=== PATIENT | male | born 1970 | race Caucasian/White ===

== ENCOUNTER 2023-10-11 12:17 | Outpatient (CLI) | payer OTHER, SELFPAY | END 2023-10-11 12:18 | disposition home or self-care (01) | LOC: NFLDREF 10-15 11:03 | PROVIDERS: PCP Physician Assistant Medical; Referring Provider Physician Assistant Medical; Visit Provider Physician Assistant Medical | DX: Z00.00 Encounter for general adult medical examination without abnormal findings (principal); Z12.5 Encounter for screening for malignant neoplasm of prostate; R73.03 Prediabetes; I10 Essential (primary) hypertension; K21.9 Gastro-esophageal reflux disease without esophagitis; F10.20 Alcohol dependence, uncomplicated | CPT/HCPCS: G0103 ==

== ENCOUNTER 2024-11-04 08:20 | Outpatient (CLI) | payer OTHER, SELFPAY | END 2024-11-04 08:21 | disposition home or self-care (01) | LOC: NFLDREF 11-12 15:16 | PROVIDERS: PCP Physician Assistant Medical; Referring Provider Physician Assistant Medical; Visit Provider Physician Assistant Medical | DX: Z00.00 Encounter for general adult medical examination without abnormal findings (principal); R73.03 Prediabetes; I10 Essential (primary) hypertension; Z12.5 Encounter for screening for malignant neoplasm of prostate | CPT/HCPCS: 80053; 80061; G0103 ==